=== PATIENT | female | born 2000 | race Caucasian/White ===

== ENCOUNTER 2022-04-12 01:23 | Inpatient (IN) | payer SELFPAY ==
[2022-04-12] MEDS ORDERED: SODIUM CHLORIDE 0.9% 500 ML INFUS.BAG IV ONE (02:34)
[2022-04-12] MEDS ORDERED: ACETAMINOPHEN 1000 MG/100 ML BAG IVPB ONE (02:34)
[2022-04-12] MEDS ORDERED: ACETAMINOPHEN INJECTION 100 ML IVPB ONE (02:35)
[2022-04-12 02:39] LABS: EPI CELLS >36 /uL (0-25.1); HCG,QUALITATIVE URINE Negative; HYALINE CASTS 1 /uL (0-3.1); URINE APPEARANCE CLOUDY; URINE BACTERIA 1157 /uL (0-1359); URINE BILIRUBIN NEGATIVE (NEGATIVE); URINE COLOR YELLOW; URINE GLUCOSE (UA) NEGATIVE (NEGATIVE); URINE KETONE NEGATIVE (NEGATIVE); URINE LEUK ESTERASE NEGATIVE (NEGATIVE); URINE NITRITE NEGATIVE (NEGATIVE); URINE PROTEIN 2+ (NEGATIVE); URINE RBC 4877 /uL (0-23.9)
[2022-04-12] MEDS ORDERED: KETOROLAC TROMETHAMINE 30 MG/1 ML VIAL IVPUSH ONE (02:44)
[2022-04-12] MEDS ORDERED: KETOROLAC TROMETHAMINE 30 MG/1 ML VIAL ONE (02:45)
[2022-04-12 03:18] LABS: BASO % 0.7 % (0-2.0); EOS % 2.2 % (0-4.5); HEMATOCRIT 37.4 % (32.4-45.2); HEMOGLOBIN 12.1 GM/dL (10.7-15.3); LYMPH % 24.5 % (8-40); MCHC 32.3 g/dl (32.0-36.0); MEAN CELL VOLUME 83.6 fl (80-96); MEAN PLT VOLUME 8.1 fl (7.5-11.1); MONO % 5.1 % (3.8-10.2); NEUT % 67.5 % (42.8-82.8); PLATELET COUNT 322 10^3/uL (134-434); RBC 4.48 M/mm3 (3.60-5.2); RDW 14.3 % (11.6-15.6); WHITE BLOOD COUNT 10.6 K/mm3 (4.0-10.0)
[2022-04-12] MEDS ORDERED: ONDANSETRON 4 MG/2 ML VIAL IVPB ONE (03:27)
[2022-04-12] MEDS ORDERED: ONDANSETRON 4 MG/2 ML VIAL ONE (03:30)
[2022-04-12 03:42] LABS: ALBUMIN 3.6 g/dl (3.4-5.0); BLOOD UREA NITROGEN 14.1 mg/dL (7-18)
[2022-04-12 03:45] LABS: CREATININE 0.8 mg/dL (0.55-1.3)
[2022-04-12 03:47] LABS: BILIRUBIN,TOTAL 0.2 mg/dL (0.2-1)
[2022-04-12] MEDS ORDERED: morphine SULFATE 4 MG/ML VIAL ONE (04:03)
[2022-04-12 04:13] LABS: INR 1.17 (0.83-1.09); PROTHROMBIN TIME (PATIENT) 13.5 SEC (9.7-13.0)
[2022-04-12 04:15] LABS: ACTIVATED PTT 34.8 SECONDS (25.2-36.5)
[2022-04-12] MEDS ORDERED: SODIUM CHLORIDE 1,000 ML IV SCH (08:30)
[2022-04-12] MEDS ORDERED: ONDANSETRON 4 MG/2 ML VIAL IVPUSH PRN (08:31)
[2022-04-12 08:56] VITALS: RESP 18
[2022-04-12] MEDS ORDERED: CEFTRIAXONE 1,000 MG in DEXTROSE 5%-WATER - 50 ML IVPB SCH (10:00)
[2022-04-12] MEDS ORDERED: TAMSULOSIN HCL 0.4 MG CAP PO ONE (10:08)
[2022-04-12] MEDS ORDERED: CEFTRIAXONE 1 GM/50 ML BAG ONE (11:05)
[2022-04-12] MEDS ORDERED: TAMSULOSIN HCL 0.4 MG CAP ONE (11:05)
[2022-04-12] MEDS ORDERED: MIDAZOLAM HCL 2 MG/2 ML SINGLE DOSE VIAL ONE (12:44)
[2022-04-12 12:59] VITALS: BMI 34.1
[2022-04-12] MEDS ORDERED: ACETAMINOPHEN 500 MG TABLET (FP) PO PRN (13:18)
[2022-04-12] MEDS ORDERED: PROMETHAZINE HCL 25 MG/1 ML VIAL IVPUSH PRN (13:18)
[2022-04-12] MEDS ORDERED: LACTATED RINGERS SOLUTION 1,000 ML IV SCH (13:30)
[2022-04-12] MEDS ORDERED: FENTANYL CITRATE/PF 50 MCG/ML VIAL ONE ×2 (13:43→14:46)
[2022-04-12 14:43] VITALS: TEMP 97
[2022-04-12] MEDS ORDERED: IBUPROFEN 800 MG/8 ML IJ IVPB PRN (16:00)
[2022-04-12] MEDS ORDERED: IBUPROFEN 800 MG/8 ML IJ IVPB ONE (16:04)
[2022-04-12] MEDS ORDERED: oxyCODONE HCL 5 MG TABLET PO ONE (16:04)
[2022-04-12] MEDS ORDERED: oxyCODONE HCL 5 MG TABLET ONE (16:50)
[2022-04-12 18:27] VITALS: BP 125/76; PULSE 80
== END 2022-04-12 17:45 | disposition home or self-care (01) | DRG 465 ==
LOC: JER 01:23 → JERBED 03:19
PROVIDERS: ADMIT Internal Medicine; ATTEND Internal Medicine
PROC: 0T778DZ Dilation of Left Ureter with Intraluminal Device, Via Natural or Artificial Opening Endoscopic (ICD-10-PCS; principal; 2022-04-12 12:00)
DX: N13.2 Hydronephrosis with renal and ureteral calculous obstruction (principal)
CPT/HCPCS: 0241U-QW; 36415; 74176-TC; 76000-TC-FY; 80053; 81003; 84703; 85025; 85610; 85730; 86850; 86900; 86901; 87086; 93005; 93010; 94760; 99285-25; C2617

== ENCOUNTER 2022-04-26 12:44 | Emergency (ER) | payer SELFPAY ==
[2022-04-26 13:01] VITALS: TEMP 98.8; BMI 28.3
[2022-04-26] MEDS ORDERED: ACETAMINOPHEN 1000 MG/100 ML BAG IVPB ONE (13:36)
[2022-04-26] MEDS ORDERED: SODIUM CHLORIDE 0.9% 500 ML INFUS.BAG IV ONE (13:36)
[2022-04-26] MEDS ORDERED: ACETAMINOPHEN INJECTION 100 ML IVPB ONE (13:43)
[2022-04-26 14:02] LABS: BASO % 0.8 % (0-2.0); EOS % 3.2 % (0-4.5); HEMATOCRIT 39.8 % (32.4-45.2); HEMOGLOBIN 13.4 GM/dL (10.7-15.3); MCH 27.5 pg (25.7-33.7); MCHC 33.6 g/dl (32.0-36.0); MEAN CELL VOLUME 81.9 fl (80-96); MEAN PLT VOLUME 7.8 fl (7.5-11.1); MONO % 4.1 % (3.8-10.2); NEUT % 68.9 % (42.8-82.8); PLATELET COUNT 409 10^3/uL (134-434); RBC 4.86 M/mm3 (3.60-5.2); RDW 13.8 % (11.6-15.6); WHITE BLOOD COUNT 8.2 K/mm3 (4.0-10.0)
[2022-04-26 14:28] LABS: CALCIUM 9.8 mg/dL (8.5-10.1)
[2022-04-26 14:29] LABS: BLOOD UREA NITROGEN 10.2 mg/dL (7-18)
[2022-04-26 14:32] LABS: CREATININE 0.7 mg/dL (0.55-1.3)
[2022-04-26 14:33] LABS: BILIRUBIN,TOTAL 0.5 mg/dL (0.2-1); TOT PROT 7.8 g/dl (6.4-8.2)
[2022-04-26 15:06] LABS: EPI CELLS >36 /uL (0-25.1); HCG,QUALITATIVE URINE Negative; HYALINE CASTS 1 /uL (0-3.1); URINE APPEARANCE CLOUDY; URINE BACTERIA 29 /uL (0-1359); URINE BILIRUBIN NEGATIVE (NEGATIVE); URINE COLOR YELLOW; URINE GLUCOSE (UA) NEGATIVE (NEGATIVE); URINE KETONE NEGATIVE (NEGATIVE); URINE LEUK ESTERASE 2+ (NEGATIVE); URINE NITRITE NEGATIVE (NEGATIVE); URINE PROTEIN 3+ (NEGATIVE); URINE RBC 3026 /uL (0-23.9); URINE UROBILINOGEN 0.2 mg/dL (0.2-1.0); URINE WBC 166 /uL (0-25.8)
[2022-04-26 17:13] VITALS: BP 100/63; PULSE 72; RESP 16
[2022-04-26] MEDS ORDERED: CEPHALEXIN MONOHYDRATE 500 MG CAPSULE (UD) PO ONE (18:30)
[2022-04-26] MEDS ORDERED: TAMSULOSIN HCL 0.4 MG CAP PO ONE (18:30)
[2022-04-26] MEDS ORDERED: TAMSULOSIN HCL 0.4 MG CAP ONE ×2 (18:50→18:58)
[2022-04-26] MEDS ORDERED: CEPHALEXIN MONOHYDRATE 500 MG CAPSULE (UD) ONE ×2 (18:50→18:58)
== END 2022-04-26 18:56 | disposition home or self-care (01) ==
LOC: JER 12:44
PROC: 3E033GC Introduction of Other Therapeutic Substance into Peripheral Vein, Percutaneous Approach (ICD-10-PCS; principal; 2022-04-26)
DX: N20.0 Calculus of kidney (principal)
CPT/HCPCS: 36415; 74176-TC; 80053; 81003; 84703; 85025; 86850; 86900; 86901; 87086; 99285-25